=== PATIENT | male | born 1985 ===

== ENCOUNTER 2021-09-20 17:41 | Outpatient (REF) | payer BC, SELFPAY ==
[2021-09-22 12:13] LABS: COVID-19 RT-PCR UVMMC Result Negative (Negative)
== END 2021-09-20 17:42 | disposition home or self-care (01) ==
LOC: LBN 17:41
PROVIDERS: Visit Provider Family Medicine
DX: Z20.822 Contact with and (suspected) exposure to COVID-19 (principal); R05.8 Other specified cough
CPT/HCPCS: U0003